=== PATIENT | female | born 1990 | race Caucasian/White ===

== ENCOUNTER 2018-07-05 17:19 | Emergency (ER) | payer MEDICAID ==
[~2018-07-05] VITALS: Ht 160 cm; Wt 84.3 kg
[2018-07-05] MEDS ORDERED: ENOX80SY7 SUBCUT (18:58)
[2018-07-05 19:18] VITALS: BP 137/65
== END 2018-07-05 19:24 | disposition home or self-care (01) ==
LOC: ER 17:55
DX: R79.1 Abnormal coagulation profile (principal); Z79.02 Long term (current) use of antithrombotics/antiplatelets
CPT/HCPCS: 36415; 85610; 99283

== ENCOUNTER 2018-09-29 14:56 | Emergency (ER) | payer MEDICAID ==
[~2018-09-29] VITALS: Ht 160 cm; Wt 90.0 kg
[~2018-09-29 14:56] MED LIST: ENOX80SY7 SUBCUT
[2018-09-29 16:28] VITALS: BP 130/77
[2018-09-29 16:47] LABS: BASOPHILS % (AUTO) 0.7 % (0-1); EOSINOPHILS # (AUTO) 0.1 X10'3 (0-0.9); EOSINOPHILS % (AUTO) 2.2 % (0-6); HEMATOCRIT 37.4 % (35.0-45.0); HEMOGLOBIN 12.3 g/dl (12.0-16.0); LYMPHOCYTES % (AUTO) 33.7 % (21-51); MEAN CORPUSCULAR HEMOGLOBIN 25.7 PG (27.0-31.0); MEAN CORPUSCULAR HGB CONC 32.7 % (33.0-36.5); MEAN CORPUSCULAR VOLUME 78.7 FL (78-98); MEAN PLATELET VOLUME 7.5 FL (7.4-10.4); MONOCYTES # (AUTO) 0.3 X10'3 (0-0.9); MONOCYTES % (AUTO) 4.6 % (2-12); NEUTROPHILS # (AUTO) 3.6 X10'3 (1.8-7.7); NEUTROPHILS % (AUTO) 58.8 % (42-75); PLATELET COUNT 342 X10'3 (140-440); RED BLOOD COUNT 4.76 X10'6 (4.20-5.60); RED CELL DISTRIBUTION WIDTH 16.4 % (11.5-14.5); WHITE BLOOD COUNT 6.1 X10'3 (4.5-11.0)
[2018-09-29 17:04] LABS: ALANINE AMINOTRANSFERASE 48 U/L (12-78); ALBUMIN 3.6 G/DL (3.4-5.0); ALBUMIN/GLOBULIN RATIO 0.8 (1.1-1.5); ALKALINE PHOSPHATASE 122 IU/L (46-116); ANION GAP 9 (8-16); ASPARTATE AMINO TRANSFERASE 22 U/L (10-37); BILIRUBIN,TOTAL 0.4 MG/DL (0.1-1.0); BLOOD UREA NITROGEN 10 MG/DL (7-18); BUN/CREATININE RATIO 15.2 (6.6-38.0); CALCIUM 8.7 MG/DL (8.5-10.1); CHLORIDE 104 MMOL/L (99-107); CREATININE 0.66 MG/DL (0.40-0.90); GLUCOSE 92 MG/DL (70-104); POTASSIUM 3.8 MMOL/L (3.5-5.1); SODIUM 142 MMOL/L (135-145); TOTAL CARBON DIOXIDE 28.8 MMOL/L (24-32); TOTAL PROTEIN 8.2 G/DL (6.4-8.2); eGFR > 90 ML/MIN
[2018-09-29 17:19] LABS: D-DIMER 0.28 MG/L FEU (0-0.50); PARTIAL THROMBOPLASTIN TIME 31 SECONDS (22-32)
[2018-09-29] MEDS ORDERED: ketorolac tromethamine 15mg/ml inj. IM ONE (17:30)
== END 2018-09-29 17:55 | disposition home or self-care (01) ==
LOC: ER 14:57
DX: R07.81 Pleurodynia (principal); M54.9 Dorsalgia, unspecified; R06.02 Shortness of breath; R51 Headache; Z86.711 Personal history of pulmonary embolism; Z79.899 Other long term (current) drug therapy
CPT/HCPCS: 36415; 80053; 85025; 85379; 85730; 96372; 99283; J1885; 99284

== ENCOUNTER 2020-10-26 02:53 | Emergency (ER) | payer BC, MEDICAID ==
[~2020-10-26] VITALS: Ht 160 cm; Wt 102.3 kg
[2020-10-26 03:01] VITALS: BP 136/74
--- NOTE | 2020-10-26 03:28 | NUR ---
lucila used at bed side with ring cutter and ring was sucessfully removed. Pt tolerated procedure well and ring was given to pt to take home.
== END 2020-10-26 03:30 | disposition home or self-care (01) ==
LOC: ER 02:54
DX: S60.455A Superficial foreign body of left ring finger, initial encounter (principal); Z86.711 Personal history of pulmonary embolism; Z79.899 Other long term (current) drug therapy; W49.04XA Ring or other jewelry causing external constriction, initial encounter; Y93.89 Activity, other specified; Y92.89 Other specified places as the place of occurrence of the external cause; Y99.8 Other external cause status
CPT/HCPCS: 99284